=== PATIENT | female | born 1945 | race Caucasian/White ===

== ENCOUNTER → 2019-04-14 | Outpatient (CLI) | payer OTHER ==
[~2019-04-14] MED LIST: CIPROFLOXACIN500 M1 PO; CORTISPORIN OTI10 ML OTIC; CYMBALTA60 MG; FISH OIL 1,0001 EAC5 PO; FLAGYL500 MG PO; GLUCOPHAGE XR500 MG PO; HYDROCHLOROTH12.5 MG; HYDROXYCHLOROQ200 M1; IRBESARTAN150 MG PO; KEFLEX500 MG PO; LISINOPRIL40 MG; LUMIGAN2.5 M1; MAGNESIUM100 MG PO; NORCO 5-325 TA1 EACH PO; PERCOCET 5-3251 EACH PO; ZOFRAN 4 MG ORAL4 M1 DIS
[2019-04-14 08:11] LABS: POTASSIUM 3.5 mmol/L (3.5-5.1)
== END ==
LOC: M.LAB 04:32
PROVIDERS: Anesthesiology
DX: E87.6 Hypokalemia (principal)

== ENCOUNTER → 2020-06-15 | Outpatient (CLI) | payer OTHER | LOC: M.RAD 10:53 | PROVIDERS: ATTEND Family Medicine | DX: Z12.31 Encounter for screening mammogram for malignant neoplasm of breast (principal) ==